=== PATIENT | male | born 1960 | race Hispanic/Latino ===

== ENCOUNTER 2018-06-05 06:20 | Emergency (ER) | payer SELFPAY ==
[~2018-06-05] VITALS: Ht 175.3 cm; Wt 75.8 kg
--- NOTE | 2018-06-05 06:59 | ED GENERAL ADULT ---
History of Present Illness General Chief Complaint: Hand or Wrist Injury Stated Complaint: " SOME WEIGHTS FELL ON MY FINGERS" INDEX FINGER Source: patient Exam Limitations: no limitations Vital Signs & Intake/Output Vital Signs & Intake/Output Vital Signs Date Time Temp Pulse Resp B/P B/P Pulse O2 O2 Flow FiO2 Mean Ox Delivery Rate 06/05 0639 98.7 62 16 127/67 97 Room Air Room Air Allergies Coded Allergies: No Known Allergies (06/05/18) Triage Note: 57YO MALE TO 7 W/CO R INDEX FINGER PAIN AND LAC SP "WEIGHTS FALLING ON HIM AT THS GYM LAST NIGHT" 2 JAGGED LAC'S PRESENT CO PAIN W/ROM Triage Nurses Notes Reviewed? yes HPI: 57-year-old male presents with right index finger pain. Patient was at the gym last night around 9 PM when about 100 pounds dropped on his finger. Positive for lacerations, finger deformity, and decreased ROM. Patient uncertain of tetanus status. Past History Travel History Traveled to [place] past 21 day No Medical History Any Pertinent Medical History? 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 No Review of Systems Review of Systems Constitutional: Reports: no symptoms, see HPI. EENTM: Reports: no symptoms. Respiratory: Reports: no symptoms. Cardiovascular: Reports: no symptoms. GI: Reports: no symptoms. Genitourinary: Reports: no symptoms. Musculoskeletal: Reports: no symptoms. Skin: Reports: no symptoms. Neurological/Psychological: Reports: no symptoms. Hematologic/Endocrine: Reports: no symptoms. Immunologic/Allergic: Reports: no symptoms. All Other Systems: Reviewed and Negative Physical Exam Physical Exam General Appearance: no apparent distress Comments: Gen.: Well-nourished, well-developed, no acute respiratory distress. Head: Normocephalic, atraumatic, nontender. Eyes: Normal inspection bilaterally, ricardo, EOMI Ears: Normal inspection bilaterally Nose: Normal inspection Throat/mouth : Moist mucosa Neck: Supple, full range of motion, no goiter, nontender Heart: Regular rate and rhythm, no murmurs rubs or gallops Lungs: Clear to auscultation bilaterally with normal air entry Chest: Nontender Back: Normal range of motion, nontender Abdomen: Soft, nontender, nondistended, normal bowel sounds Pelvis: Stable and nontender Extremities: Right index finger edema with decreased range of motion. Neurologic: Cranial nerves grossly intact, speech is clear Skin: 2 2 cm lacerations located on the anterior lateral and posterior lateral aspect of right index finger. Psychiatric: Calm, cooperative, no apparent delusions or hallucinations Core Measures ACS in differential dx? No CVA/TIA Diagnosis: No Sepsis Present: No Sepsis Focused Exam Completed? No Progress Differential Diagnoses I considered the following diagnoses in my evaluation of the patient: Finger fracture versus laceration Plan of Care: Orders Procedure Date/time Status XRY-HAND, 2 Views RIGHT 06/05 644 Active Current Medications Sig/Laura Start time Last Medication Dose Stop Time Status Admin Tetanus/Diphtheria 0.5 ML ONCE ONE 06/05 700 UNVr Toxoids Adsorbed 06/05 701 (Decavac) Initial ED EKG: none Comments: 10 hours passed since injury onset. Patient is outside secondary closure time window, wound will need to heal via primary closure. Care instructions discussed with patient. Departure Departure Disposition: HOME OR SELF CARE Condition: Stable Clinical Impression Primary Impression: Finger injury Qualifiers: Encounter type: initial encounter Laterality: right Qualified Code: S69.91XA - Unspecified injury of right wrist, hand and finger(s), initial encounter Referrals: Patient Has No Primary Care Dr (PCP/Family) Departure Forms: Customer Survey General Discharge Information Comments Please note that there might be incidental findings in your evaluation that are unrelated to the current emergency department visit. Please notify your primary care doctor about this emergency department visit in order to obtain and review all of the testing performed so that these incidental findings can be monitored as needed. If you had an x-ray performed, please understand that some fractures may not be seen on the initial set of x-rays. If your symptoms persist you might need a repeat set of x-rays to check for such a fracture. If you had a laceration evaluated, please understand that foreign bodies such as glass or wood may not be visible to the naked eye or on plain x-rays. If the wound becomes red, swollen, increasingly more painful or if there is any drainage from the wound, please have it reevaluated by a physician for the possibility of a retained foreign body. If you're unable to follow up as outlined in the discharge instructions please return to the emergency department. Critical Care Note Critical Care Note Critical Care Time: non-applicable
--- NOTE | 2018-06-05 07:12 | RADIOLOGY REPORT ---
EXAMINATION: XR HAND, RIGHT CLINICAL INFORMATION: Crush injury to the right index finger COMPARISON: None TECHNIQUE: AP and lateral views of the right hand. FINDINGS: Bandaging material overlies the second digit. This limits evaluation for subtle nondisplaced fracture. No displaced fracture is seen. Joint spaces are maintained. Alignment is maintained. No radiopaque foreign body. IMPRESSION: No acute fracture or malalignment. Overlying bandaging at the distal second digit limits evaluation for a subtle nondisplaced fracture.
[2018-06-05 07:45] VITALS: BP 119/64
== END 2018-06-05 07:45 ==
LOC: EDBD 06:20 → ERH 06:20
DX: S69.91XA Unspecified injury of right wrist, hand and finger(s), initial encounter (principal); F17.210 Nicotine dependence, cigarettes, uncomplicated; W23.0XXA Caught, crushed, jammed, or pinched between moving objects, initial encounter; Y93.B3 Activity, free weights
CPT/HCPCS: 73120-RT; 90471; 90714; 96372; J1885; J2001

== ENCOUNTER 2018-06-10 08:55 | Emergency (ER) | payer SELFPAY ==
[2018-06-10 09:02] VITALS: BP 118/71
--- NOTE | 2018-06-10 11:30 | ED ANIMAL BITE/WOUND CHECK ---
History of Present Illness General Chief Complaint: Suture Removal/Wound Recheck Stated Complaint: WOUND CHECK RT POINTER FINGER Source: patient Exam Limitations: no limitations Vital Signs & Intake/Output Vital Signs & Intake/Output Vital Signs Date Time Temp Pulse Resp B/P B/P Pulse O2 O2 Flow FiO2 Mean Ox Delivery Rate 06/10 908 97.2 06/10 902 97.2 58 16 118/71 98 Room Air Allergies Coded Allergies: No Known Allergies (06/05/18) Triage Note: PT TO ED WITH WOUND CHECK TO RT POINTER FINGER. STATES THAT HE WAS UNABLE TO GET STITCHES AT THE TIME DUE TO THE TIME OF THE INJURY. REPORTS THAT HE LIVES IN A ASSISTED AND ALSO HIS JOB BOTH WANT HIM TO GET IT CHECKED AGAIN. FINGER CURRENTLY WRAPPED UP. PT REPORTS THAT IT IS SWOLLEN AND DRAINING AT TIMES. Triage Nurses Notes Reviewed? yes Onset: Abrupt Duration: day(s): (5), better, continues in ED Timing: single episode today Injury Environment: home Is Injury an Animal Bite? No Severity: mild, moderate Severity Numbers: 4 HPI: 57-year-old male with no medical history presents for a days ago patient was seen to laceration to his right index finger distal segment. At the time of the visit it was too late for sutures to be applied to the wound will heal by secondary intention. Patient has been keeping the area covered and applying bacitracin. He reports some mild pain and clear discharge no spreading redness or fevers. Past History Travel History Traveled to [place] past 21 day No Medical History Any Pertinent Medical History? 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 No Review of Systems Review of Systems Constitutional: Reports: no symptoms. EENTM: Reports: no symptoms. Respiratory: Reports: no symptoms. Cardiovascular: Reports: no symptoms. GI: Reports: no symptoms. Genitourinary: Reports: no symptoms. Musculoskeletal: Reports: no symptoms. Skin: Reports: see HPI (FINGER LACERATION). Neurological/Psychological: Reports: no symptoms. Hematologic/Endocrine: Reports: no symptoms. Immunologic/Allergic: Reports: no symptoms. All Other Systems: Reviewed and Negative Physical Exam Physical Exam General Appearance: well developed/nourished, no apparent distress, alert, awake Head: atraumatic, normal appearance Eyes: Bilateral: normal appearance, EOMI. Ears, Nose, Throat: hearing grossly normal Neck: normal inspection, supple, full range of motion Respiratory: no respiratory distress Peripheral Pulses: 2+ radial (R) Extremities: normal range of motion, THERE IS A 2 CM LINEAR VERTICAL LACERATION TO THE DISTAL SEGMENT OF THE RIGHT INDEX FINGER ON THE PALMAR SIDE NO NAIL DAMAGE. tHERE IS SOME SURROUNDING SOFT TISSUE SWELLING CLEAR DISCHARGE AND MACERATED TISSUE. nO ERYTHEMA [place] RANGE OF MOTION IS INTACT NO PUS DISCHARGE NO LYMPHATIC STREAKING Neurologic/Psych: no motor/sensory deficits, awake, alert, oriented x 3, normal gait Skin: intact, normal color, warm/dry Progress Differential Diagnosis: abscess, cellulitis, joint infection, tenosysnovitis Plan of Care: Patient is here for wound check after a laceration 5 days ago. The wound appears to be healing however there is some macerated tissue patient has been keeping it covered and applying bacitracin. Patient was instructed to keep the area as dry as possible. Avoid applying bacitracin as escaped the area wet only keep the wound covered if he is doing something where he may get dirty keep uncovered at night and while at home continue to look out for signs of infection like redness swelling discharge or pain follow-up in another few days for a wound check return sooner with any concerns. Departure Departure Disposition: HOME OR SELF CARE Condition: Stable Clinical Impression Primary Impression: Visit for wound check Referrals: Patient Has No Primary Care Dr (PCP/Family) Additional Instructions: Keep area clean and dry. YOU want the wound as dry as possible. Keep it open at night. LOOK FOR signs of infection like redness swelling discharge or pain he should follow-up for a wound check in 3-4 days. Return if any concerns. Departure Forms: Customer Survey General Discharge Information
== END 2018-06-10 11:33 ==
LOC: ERH 08:55
DX: S61.210D Laceration without foreign body of right index finger without damage to nail, subsequent encounter (principal); M79.644 Pain in right finger(s)
CPT/HCPCS: 99282